=== PATIENT | female | born 2000 ===

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

== ENCOUNTER 2023-05-05 10:28 | Outpatient (CLI) | payer OTHER | END 2023-05-05 13:15 | disposition home or self-care (01) | LOC: PRENATAL 10:28 | PROVIDERS: ATTEND Obstetrics & Gynecology Maternal & Fetal Medicine | DX: O36.80X0 Pregnancy with inconclusive fetal viability, not applicable or unspecified (principal); O34.219 Maternal care for unspecified type scar from previous cesarean delivery; Z36.82 Encounter for antenatal screening for nuchal translucency; Z3A.11 11 weeks gestation of pregnancy ==

== ENCOUNTER 2023-07-06 10:38 | Outpatient (CLI) | payer OTHER | END 2023-07-06 10:39 | disposition home or self-care (01) | LOC: PRENATAL 10:38 | PROVIDERS: ATTEND Obstetrics & Gynecology Maternal & Fetal Medicine | DX: O35.3XX0 Maternal care for (suspected) damage to fetus from viral disease in mother, not applicable or unspecified (principal); O34.219 Maternal care for unspecified type scar from previous cesarean delivery; O44.00 Complete placenta previa NOS or without hemorrhage, unspecified trimester; Z3A.20 20 weeks gestation of pregnancy ==

== ENCOUNTER 2023-09-30 11:52 | Outpatient (CLI) | payer OTHER | END 2023-09-30 11:53 | disposition home or self-care (01) | LOC: PRENATAL 11:52 | PROVIDERS: ATTEND Obstetrics & Gynecology Maternal & Fetal Medicine | DX: O26.849 Uterine size-date discrepancy, unspecified trimester (principal); O36.8199 Decreased fetal movements, unspecified trimester, other fetus; O34.219 Maternal care for unspecified type scar from previous cesarean delivery; Z3A.32 32 weeks gestation of pregnancy ==